=== PATIENT | female | born 1950 | race Caucasian/White ===

== ENCOUNTER → 2023-01-27 12:00 | Outpatient (CLI) | payer MEDICARE, SELFPAY ==
[2023-01-27 19:50] LABS: Basophils # 0.1 K/mm3 (0-0.2); Basophils % 0.6 % (0.1-2.0); Eosinophils # 0.1 K/mm3 (0.0-0.4); Eosinophils % 1.3 % (0.1-12.0); Hematocrit 42.8 % (37.0-47.0); Hemoglobin 15.1 g/dL (12.2-16.2); Lymphocytes % 30.1 % (10-50); Mean Corpuscular HGB Conc 35.4 g/dL (31.8-35.4); Mean Corpuscular Hemoglobin 32.2 pg (27.0-31.2); Mean Corpuscular Volume 91.2 fl (81-99); Mean Platelet Volume 8.4 fl (7.4-10.4); Monocytes # 0.4 K/mm3 (0.1-1.0); Monocytes % 4.5 % (1.7-9.3); Neutrophils # 6.3 K/mm3 (1.8-7.8); Neutrophils % 63.5 % (37.0-80.0); Platelet Count 322 K/mm3 (142-424); Red Cell Distribution Width 13.2 % (11.5-17.5); White Blood Count 9.9 K/mm3 (4.8-10.8)
[2023-01-27 20:10] LABS: Alanine Aminotransferase 19 U/L (12-78); Albumin Level 4.5 g/dl (3.5-5.0); Albumin/Globulin Ratio 1.8 (1.1-1.8); Alkaline Phosphatase 77 U/L (38-126); Aspartate Amino Transferase 28 U/L (14-36); Bilirubin,Total 0.6 mg/dl (0.2-1.3); Blood Urea Nitrogen 9 mg/dl (7-17); Calcium 9.2 mg/dl (8.4-10.2); Carbon Dioxide 31 mmol/L (22.0-30.0); Chloride 96 mmol/L (98-107); Chol/HDL Ratio 4.7 (1-3.5); Cholesterol 244 mg/dl (140-200); Estimated Glomerular Filt Rate 82 ml/min (>60); GFR (African American) 100 ML/MIN (>60); Globulin 2.5 g/dL (1.3-3.2); Glucose 73 mg/dl (74-100); HDL Cholesterol 52 mg/dl (40-60); Sodium 141 mmol/L (136-145); Triglycerides 163 mg/dl (30-150); VLDL Cholesterol 33 mg/dL (0-40)
[2023-01-27 20:21] LABS: Direct LDL Cholesterol 146.01 mg/dL (100-129)
[2023-01-27 20:41] LABS: Thyroid Stimulating Hormone 0.42 uIU/mL (0.465-4.68)
[2023-01-27 20:42] LABS: Anion Gap 17.1 mEq/L (5-15); Potassium 3.1 mmoL/L (3.5-5.1)
[2023-01-27 21:00] LABS: Vitamin B12 304 pg/mL (239-931)
== END ==
PROVIDERS: PCP Family Medicine; Visit Provider Family Medicine
DX: I10 Essential (primary) hypertension (principal)
CPT/HCPCS: 80053; 80061; 82607; 84443; 85025

== ENCOUNTER 2023-07-05 23:11 | Outpatient (CLI) | payer MEDICARE, SELFPAY | END 2023-07-05 23:59 | LOC: LAB.DROPOF 23:11 | PROVIDERS: PCP Nurse Practitioner; Visit Provider Nurse Practitioner | DX: R82.90 Unspecified abnormal findings in urine (principal); B96.29 Other Escherichia coli [E. coli] as the cause of diseases classified elsewhere | CPT/HCPCS: 87086 ==

== ENCOUNTER 2023-07-07 18:00 | Outpatient (CLI) | payer MEDICARE, SELFPAY ==
[2023-07-07 18:42] LABS: Basophils # 0.1 K/mm3 (0-0.2); Basophils % 0.9 % (0.1-2.0); Eosinophils # 0.2 K/mm3 (0.0-0.4); Eosinophils % 1.6 % (0.1-12.0); Hematocrit 44.8 % (37.0-47.0); Hemoglobin 14.1 g/dL (12.2-16.2); Lymphocytes # 2.7 K/mm3 (0.7-4.5); Lymphocytes % 24.9 % (10-50); Mean Corpuscular HGB Conc 31.4 g/dL (31.8-35.4); Mean Corpuscular Hemoglobin 31.3 pg (27.0-31.2); Mean Corpuscular Volume 99.9 fl (81-99); Mean Platelet Volume 8.5 fl (7.4-10.4); Monocytes # 0.6 K/mm3 (0.1-1.0); Monocytes % 5.1 % (1.7-9.3); Neutrophils # 7.2 K/mm3 (1.8-7.8); Neutrophils % 67.4 % (37.0-80.0); Platelet Count 352 K/mm3 (142-424); Red Blood Count 4.48 M/mm3 (4.20-5.40); Red Cell Distribution Width 13.5 % (11.5-17.5); White Blood Count 10.7 K/mm3 (4.8-10.8)
[2023-07-07 18:46] LABS: Alanine Aminotransferase 21 U/L (12-78); Albumin/Globulin Ratio 1.7 (1.1-1.8); Alkaline Phosphatase 80 U/L (38-126); Anion Gap 9.4 mEq/L (5-15); Aspartate Amino Transferase 29 U/L (14-36); Bilirubin,Total 0.4 mg/dl (0.2-1.3); Blood Urea Nitrogen 16 mg/dl (7-17); Calcium 9.3 mg/dl (8.4-10.2); Carbon Dioxide 32 mmol/L (22.0-30.0); Chloride 106 mmol/L (98-107); Estimated Glomerular Filt Rate 82 ml/min (>60); GFR (African American) 100 ML/MIN (>60); Globulin 2.3 g/dL (1.3-3.2); Glucose 80 mg/dl (74-100); Potassium 4.4 mmoL/L (3.5-5.1); Sodium 143 mmol/L (136-145); Total Protein,Serum 6.3 g/dl (6.3-8.2)
[2023-07-07 20:31] LABS: Vitamin B12 245 pg/mL (239-931)
== END 2023-07-07 23:59 | disposition home or self-care (01) ==
LOC: LAB.DROPOF 07-08 14:05
PROVIDERS: PCP Family Medicine; Visit Provider Family Medicine
DX: I10 Essential (primary) hypertension (principal); F41.9 Anxiety disorder, unspecified; R29.818 Other symptoms and signs involving the nervous system; F32.A Depression, unspecified; Z68.31 Body mass index [BMI] 31.0-31.9, adult
CPT/HCPCS: 80053; 82607; 84443; 85025

== ENCOUNTER 2025-02-02 12:15 | Outpatient (CLI) | payer MEDICARE, SELFPAY ==
[2025-02-02 19:40] LABS: Hematocrit 41.8 % (37.0-47.0); Hemoglobin 14.0 g/dL (12.2-16.2); Immature Granulocytes % 0.3 %; Mean Corpuscular HGB Conc 33.5 g/dL (31.8-35.4); Mean Corpuscular Hemoglobin 31.1 pg (27.0-31.2); Mean Corpuscular Volume 92.9 fl (81-99); Nucleated Red Blood Cells % 0 %; Platelet Count 272 K/mm3 (142-424); Red Blood Count 4.50 M/mm3 (4.20-5.40); Red Cell Distribution Width-SD 42.1 fL; White Blood Count 7.2 K/mm3 (4.8-10.8)
[2025-02-02 20:04] LABS: Alanine Aminotransferase 23 U/L (12-78); Albumin Level 4.3 g/dl (3.5-5.0); Albumin/Globulin Ratio 1.6 (1.1-1.8); Alkaline Phosphatase 74 U/L (38-126); Anion Gap 9.8 mEq/L (5-15); Aspartate Amino Transferase 25 U/L (14-36); Bilirubin,Total 0.8 mg/dl (0.2-1.3); Blood Urea Nitrogen 21 mg/dl (7-17); Calcium 9.5 mg/dl (8.4-10.2); Carbon Dioxide 32 mmol/L (22.0-30.0); Chloride 98 mmol/L (98-107); Cholesterol 221 mg/dl (140-200); Creatinine,Serum 1.00 mg/dl (0.52-1.04); Estimated Glomerular Filt Rate 54 ml/min (>60); GFR (African American) 66 ML/MIN (>60); Globulin 2.7 g/dL (1.3-3.2); Glucose 97 mg/dl (74-100); HDL Cholesterol 49 mg/dl (40-60); Potassium 3.8 mmoL/L (3.5-5.1); Sodium 136 mmol/L (136-145); Total Protein,Serum 7.0 g/dl (6.3-8.2); Triglycerides 199 mg/dl (30-150)
[2025-02-02 20:34] LABS: Thyroid Stimulating Hormone 0.55 uIU/mL (0.465-4.68)
[2025-02-02 23:10] LABS: Hepatitis C Ab Qual. W/ RFX NEGATIVE (Negative)
--- OUTSIDE RECORDS SUMMARY | 2025-02-05 12:18 | XMS_ITS | Data Portability ---
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 Plan of Treatment Reminders Order Date Submit Date Provider Last Modified By Organization Details Last Modified Time Details Appointments None recorded. Lab surgical pathology study 2024 025 [facility], [address] [place] [address], [id number], 09:36:15 surgical pathology study 2024 025 [facility], [address] [place] [address], [phone], 17:54:08 Referral None recorded. Procedures None recorded. Surgeries None recorded. Imaging None recorded. Medication Orders None recorded. Patient TargetsNo targets recorded. Patient InstructionsNo instructions recorded. Reason for Referral None Reported. Results Created Date Observation Date Name Description Value Unit Range Abnormal Flag Note LastModifiedBy Organization Detail LastModifiedTime 06/22/1906/21/2024 [facility] surgical SEE BELOW abnormal Bode topat holog y Repor t NAME: JACKIE PAZ SARI PATH: [id number] PROCE DURE DATE: 06/21 SIGNO UT DATE: 06/22 Copy to: Diagn osis: Dorsa l neck- BASAL CELL CARCI NOMA Comme nt: One perip heral emily n is invol kayla with tumor . AJCC: T1, Nx, Mx SOURC E OF SPECI MEN: SKIN, DORSA L NECK [facility] INFOR MATIO N: R/O: BCC. Gross Descr iptio n: The speci men consi sted of a ballard fragm ent which was bisec jannet and measu red 7 x 7 x 1 mm. All submi tted in one casse tte. Micro scopi c Descr iptio n: Nests and aggre keyes of immat ure basal oid epith elial cells with perip heral palis ading are prese nt in the dermi s. SURI PAVON MD Ruba d Out Date: 06/22 17:53 1 Not Available [facility] [address] [place] [address], [place], [phone], 06/22/2024 17:54:08 09/09/1909/08/2024 [facility] surgical SEE BELOW abnormal Bode topat holog y Repor t NAME: JACKIE PAZ SARI PATH: [id number] PROCE DURE DATE: 09/08 SIGNO UT DATE: 09/12 Copy to: Diagn osis: Dorsa l Neck - REPAR ATIVE REACT ION FOLLO WING PREVI OUS PROCE DURE Comme nt: Subcu taneo us fat is ident ified . SOURC E OF SPECI MEN: SKIN, DORSA L NECK [facility] INFOR MATIO N: BX PROVE N: BCC. CHECK FOR CLEAR EMILY NS. Gross Descr iptio n: Recei kayla times one ballard ellip tical -shap ed excis ion which measu red 28 x 12 x 5 mm. Speci men is inked with blue dye for emily ns and seria lly secti oned (x10) . All is submi tted in three casse ttes. Micro scopi c Descr iptio n: Focal granu latio n tissu e graves the site of the previ ous proce dure. There is no evide nce of resid ual neopl asm. SURI PAVON MD Ruba d Out Date: 09/12 09:35 1 Not [address] [facility] [address], [place], [address], 09/12/2024 09:36:15 Result Notes None recorded. 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 Procedures Surgical History Date Name Laterality Status Provider Name and Address Organization Details Recorded Time DAK - Biopsy, Tangential completed Lillian Crooks [facility] 06/21/2024 11:34:55 Imaging Results None recorded. Procedure Notes None recorded. Medical Equipment None Reported. Allergies No known drug allergies Medications Name Sig Start Date Stop Date Status Note LastModified by Organization Details LastModified Time amoxicillin 500 mg capsule TAKE ONE CAPSULE BY MOUTH TWICE DAILY FOR 10 DAYS active Not Available Not Available No t Available furosemide 40 mg tablet TAKE ONE TABLET BY MOUTH DAILY active Not Available Not Available Not Available atorvastatin 40 mg tablet TAKE ONE TABLET BY MOUTH EVERY DAY active Not Available Not Available No t Available nystatin 100,000 unit/mL oral suspension SWISH AND swallow 5ml BY MOUTH EVERY 6 HOURS active Not Available Not Available No t Available prednisone 10 mg tablet active Not Available Not Available Not Available azithromycin 250 mg tablet active Not Available Not Available Not Available alprazolam 1 mg tablet TAKE ONE TABLET BY MOUTH TWICE DAILY NEEDED FOR ANXIETY, USE sparingly when possible active Not Available Not Available No t Available fluconazole 150 mg tablet TAKE ONE TABLET BY MOUTH every other DAY FOR SIX DAYS active Not Available Not Available No t Available benzonatate 200 mg capsule TAKE THREE CAPSULES BY MOUTH DAILY FOR COUGH active Not Available Not Available No t Available metoprolol succinate ER 50 mg tablet,exten ded release 24 hr TAKE ONE TABLET BY MOUTH EVERY DAY active Not Available Not Available No t Available ondansetron HCl 4 mg tablet TAKE ONE TABLET BY MOUTH EVERY EIGHT HOURS NEEDED FOR NAUSEA AND VOMITING active Not Available Not Available No t Available prednisone 20 mg tablet TAKE ONE TABLET BY MOUTH EVERY DAY active Not Available Not Available No t Available metoprolol succinate ER 100 mg tablet,exten ded release 24 hr Take ONE tablet by MOUTH DAILY active Not Available Not Available Not Available permethrin 5 % topical cream active Not Available Not Available Not Available venlafaxine ER 150 mg capsule,exte nded release 24 hr TAKE ONE CAPSULE BY MOUTH DAILY active Not Available Not Available Not Available valsartan 80 mg tablet TAKE ONE TABLET BY MOUTH EVERY DAY active Not Available Not Available No t Available potassium chloride ER 10 mEq tablet,exten ded release TAKE ONE CAPSULE BY MOUTH EVERY DAY active Not Available Not Available No t Available clopidogrel 75 mg tablet TAKE ONE TABLET BY MOUTH EVERY DAY active Not Available Not Available No t Available ciprofloxaci n 500 mg tablet TAKE ONE TABLET BY MOUTH TWICE DAILY FOR 10 DAYS active Not Available Not Available No t Available sulfamethoxa zole 800 mg-trimethop rim 160 mg tablet TAKE ONE TABLET BY MOUTH TWICE DAILY active Not Available Not Available No t Available omeprazole 40 mg capsule,berny yed release TAKE ONE TABLET BY MOUTH DAILY active Not Available Not Available Not Available aspirin 81 mg tablet,delay ed release TAKE ONE TABLET BY MOUTH EVERY DAY active Not Available Not Available No t Available temazepam 7.5 mg capsule TAKE ONE CAPSULE BY MOUTH AT BEDTIME active Not Available Not Available No t Available alprazolam 0.5 mg tablet TAKE ONE TABLET BY MOUTH THREE TIMES DAILY NEEDED active Not Available Not Available No t Available alprazolam 0.25 mg tablet TAKE 1 TABLET BY MOUTH TWICE DAILY FOR 5 DAYS active Not Available Not Available No t Available amlodipine 10 mg tablet TAKE ONE TABLET BY MOUTH EVERY DAY active Not Available Not Available No t Available benzonatate 100 mg capsule active Not Available Not Available Not Available cephalexin 500 mg capsule active Not Available Not Available Not Available hyoscyamine sulfate 0.125 mg tablet TAKE ONE TABLET BY MOUTH FOUR TIMES DAILY NEEDED FOR DIARRHEA OR abdominal cramping active Not Available Not Available No t Available nystatin 100,000 unit/gram topical cream active Not Available Not Available Not Available nystatin-tri amcinolone 100,000 unit/g-0.1 % topical cream apply TO affected AREA TO THE SKIN 2 times a DAY IN THE MORNING AND IN THE EVENING FOR 2 WEEKS active Not Available Not Available No t Available pravastatin 20 mg tablet TAKE ONE TABLET BY MOUTH EVERY DAY active Not Available Not Available No t Available mirtazapine 15 mg tablet TAKE ONE TABLET BY MOUTH EVERY DAY active Not Available Not Available No t Available Cheratussin AC 10 mg-100 mg/5 mL oral liquid active Not Available Not Available Not Available epinephrine 0.3 mg/0.3 mL injection, auto-injecto r Inject contents of 1 syringe intramuscul rosa, repeat in 10-15 minutes if symptoms are not resolved. Call 911 after using. - DO not exceed TWO doses PER episode active Not Available Not Available Not Available cefuroxime axetil 500 mg tablet TAKE ONE TABLET BY MOUTH TWICE DAILY FOR 7 DAYS active Not Available Not Available No t Available methylpredni solone 4 mg tablets in a dose pack take BY MOUTH as directed ON package active Not Available Not Available No t Available hydrocodone 10 mg-chlorphen iramine 8 mg/5 mL oral susp extend.rel 12hr active Not Available Not Available Not Available losartan 50 mg-hydrochlo rothiazide 12.5 mg tablet TAKE ONE TABLET BY MOUTH EVERY DAY active Not Available Not Available No t Available [facility] 3 % shampoo APPLY TO wet HAIR AND lather WEEKLY. LEAVE in place FOR approximate ly THREE minutes AND THEN RINSE active Not Available Not Available N ot Available oxybutynin chloride 5 mg tablet active Not Available Not Available No t Available dorzolamide 2 % eye drops instill one drop into BOTH eyes TWICE DAILY active Not Available Not Available Not Available amoxicillin 500 mg-potassium clavulanate 125 mg tablet TAKE ONE TABLET BY MOUTH TWICE DAILY FOR 7 DAYS active Not Available Not Available No t Available azithromycin 500 mg tablet take 500mg by MOUTH FOR THREE DAYS active Not Available Not Available No t Available rosuvastatin 40 mg tablet TAKE ONE TABLET BY MOUTH EVERY DAY active Not Available Not Available No t Available Effexor XR active Not Available Not Av ailable Not Available brimonidine 0.2 %-timolol 0.5 % eye drops Instill ONE DROP IN EACH EYE TWICE DAILY active Not Available Not Available Not Available venlafaxine ER 225 mg tablet,exten ded release 24 hr TAKE ONE TABLET BY MOUTH DAILY active Not Available Not Available Not Available Paxlovid 300 mg (150 mg x 2)-100 mg tablets in a dose pack FOLLOW PACKAGE DIRECTIONS active Not Available Not Available N ot Available Vitals None Recorded Social History Question Answer Notes LastModified by Organizat ion Details LastModified Time Tobacco Smoking Status Current Every Day Smoker Weston Boyd [facility] 06/21/2024 11:23:54 What Is Your Level Of Caffeine Consumption? Occasional [email or web address] Information not available 06/21/2024 Sunscreen Use? Yes [email or web address] Informatio n not available 06/21/2024 Tanning Bed Use No [email or web address] Informati on not available 06/21/2024 What Was The Date Of Your Most Recent Tobacco Screening? 06/21/2024 [email or web address] Information not available 06/21/2024 Has Tobacco Cessation Counseling Been Provided? No [email or web address] Information not available 06/21/2024 Sex: Unknown Functional Status Question Answer Note LastModified by Organizat ion Details LastModified Time Do you use any illicit or recreational drugs? No [email or web address] Information not available 06/21/2024 Do you or have you ever used any other forms of tobacco or nicotine? No [email or web address] Information not available 06/21/2024 What is your level of alcohol consumption? None [email or web address] Information not available 06/21/2024 Mental Status None recorded. Family History Relationship Description Onset Age of this Age Resolved Age Notes LastModified by Organization Details LastModified Time Father No current problems or disability [email or web address] Not available 05/28 11:23:25 Mother No current problems or disability [email or web address] Not available 05/28 11:23:25 Medical History Condition Response Skin Cancer Y Autoimmune disease N Basal Cell Carcinoma Y Gynecological HistoryNo gynecological history recorded. Obstetrics History GPAL:G 0 P 0 0 0 0 Past Encounters Encounter ID Performer Location Encounter Start Date Encounter Closed Date Diagnosis/Indication Diagnosis SNOMED-CT Code Diagnosis ICD10 Code Diagnosis IMO Codes Diagnosis Note [id number] JEROME CROCKER PA-C [facility] [address] [place] [address] 06/21/2024 10:48:12 06/21/2024 12:44:05 History of malignant neoplasm of skin 975979275 Z85.828 - 2016- No evidence of recurrence today- Call with any worrisome lesions or if treated lesions return- Return at regular intervals for skin exam as recommende d Multiple b enign melanocytic nevi 953002643 D22.5 - Benign moles seen on exam today - SPF 30 or higher broad-spec trum sunscreen recommende d with re-applica tion every 2 hours - Discussed sun protection measures, including wide-brimm ed hat, sun-protec tive clothing, and avoidance of sun during peak hours of 10am-4pm - Avoid tanning beds as these can increase the chances of all 3 types of skin cancer - Instructed to monitor for changes and to call us for appointmen t with any changing or worrisome lesions Seborrheic keratosis 394 797940 L82.1 - Benign overgrowth s of skin - Hereditary Senile angioma 2511293 I 78.1 - Benign blood vessel growths - Hereditary Solar lentigo 85888048 L 81.4 - Benign brown spots - Sun-induce d Neoplasm o f uncertain behavior of skin 58202743 D48.5 1. dorsal neck - 7mm pink scaly papule r/o BCC Onychomycosis 546487992 B35.1 Discussed likely fungal etiology of the condition. Recommende d starting white vinegar/wa ter mix (1:1) daily for 10min per day.Often takes several months to clear. Can also recur once cleared. [id number] GUSTAVO LYLES MD [facility] [address] [place] [address] 09/08/2024 13:33:26 09/08/2024 15:16:19 Basal cell carcinoma of neck 993282020 C44.41 [id number] Patient presents for an excision. Location: dorsal neckDiagno sis: BCCReason for excision: lesion is a malignancy The benefits and risks of excision were discussed, including but not necessaril y limited to, the risks of scarring, bleeding, infection and pain. Any reasonable risk of neurovascu lar structure damage was reviewed as appropriat e. The site was identified , with aid of clinical photos when available and pertinent, and the patient had no reservatio ns with the agreed upon site being the correct site of the lesion in question. The patient provided an informed consent to proceed with the procedure. The area was cleansed with alcohol and then anesthetiz ed with 3-6 cc of 1% lidocaine with 1:100,000 epinephrin e. The lesion's initial size was 0.6 cmThe margins planned and taken around the lesion were 4 mm.The size of excision [initial size + (margin x 2)] was 1.4 cm. The area was prepped with chlorhexid ine solution. An excision was performed with a #15 blade in a fusiform fashion to the depth of the subcutaneo us tissue. The specimen was sent to pathology for examinatio n. Hemostasis was achieved with bovie electrocau khushboo. Repair: due to wound tension and risk of adverse healing and/or scarring, an intermedia te layered closure was necessary and performed, by closing the deeper subcutaneo us layer and dermis with buried sutures as below, and the epidermal skin layer with exposed cuticular sutures as below. Limited or no underminin g was performed to aid this closure. Suture material used--Buri ed inverted vertical mattress(e s): 4-0 VicrylEpid ermal cuticular suture(s): 5-0 Chromic gutThe length of the repair's final incision was 3.1 cm Vaseline, Telfa dressing, and a pressure dressing was applied to the wound. Wound care instructio ns were discussed and given in written form. Suture removal will not be necessary due to cuticular sutures being of a dissolving type Patient was advised to call with any issues or concerns. The patient tolerated the procedure well without any complicati ons and left the office in good condition. Health Concerns Section Related Observation LastModified by Organization Detai ls LastModified Time None Recorded Concern Status LastModified by Organization Details LastModified Time None Recorded Advance Directives Directive None Recorded Payers Insurance Date Sequence Insurance Name Policy Number Policy Escamilla Covered Member ID Escamilla Member ID Guarantor Name 12/17/2024 1 [employer] (MEDICARE REPLACEMENT/ ADVANTAGE - PPO) [id number] Franci Vo [id number] Franci A Austin Notes Date Note Type Note Provider Name and Address Organization Details Recorded Time 5 text/html ROS as noted in the HPI Patient requests a full body skin exam. Location: Full bodyPt re-estab from 09/2016History: Hx of BCC (L upper lip - 09/2016)Areas of concern: back JEROME CROCKER PA-C [address] [place], [address], [facility] 06/23/2024 19:31:30 5 text/html ROS as noted in the HPI Patient is here for an excision of aBCCon thedorsal neck - Pacemaker? No- Defibrillator? No- Artificial Heart Valves or Joints? No- Is patient currently on antibiotics? No- History of bleeding, infection, or complication with other surgeries? No- Has patient taken any steroids or other immunosuppressant medications in the past 2 weeks? No- Currently on blood thinners? Yes Which? Plavix GUSTAVO LYLES MD [facility] [place], [address], [facility] 09/08/2024 15:07:46 OBGyn Episode No OBEpisode recorded.
--- OUTSIDE RECORDS SUMMARY | 2025-02-05 12:18 | XMS_ITS | Data Portability ---
Author Organization [place] - [facility] Address [address] [place] [address] Care Team Providers Care Job Analysis Manager Name Role Phone DEMETRIUS JUANCHO Primary Care Provider Assessment No assessment recorded. Plan of Treatment Reminders Order Date Submit Date Provider Last Modified By Organization Details Last Modified Time Details Appointments None recorde d. Lab None recorde d. Referral None recorde d. Procedures None recorde d. Surgeries None recorde d. Imaging XR, ankle 025 06/09/19 25 [facility], [address] [place] [address] , [place], [address], 5 11:23:10 XR, ankle 025 04/27/19 25 [facility], [address] [place] [address] [place], [address], 5 13:24:03 XR, ankle 024 03/16/20 24 [email or web address], [address] [place] [address] [place], [address], 4 07:25:07 Medication Orders None recorde d. Patient TargetsNo targets recorded. Patient InstructionsNo instructions recorded. Reason for Referral None Reported. Results Created Date Observation Date Name Description Value Unit Range Abnormal Flag Note LastModifiedBy Organization Detail LastModifiedTime 03/16/20 24 XR, ankle No observ ation record ed. JIMBO Eisenberg [address] [place], [address], 03/16/2024 10:29:54 04/27/19 25 XR, ankle No observ ation record ed. JIMBO Eisenberg [address] [place], [address], 04/27/2024 10:27:56 06/08/19 25 XR, ankle No observ ation record ed. JIMBO Eisenberg [address] [place], [address], 06/08/2024 10:37:08 Result Notes None recorded. Procedures Surgical History Date Name Laterality Status Provider Name and Address Organization Details Recorded Time 0 Abdominal Surgery completed Emily Smith [facility] & [place] 03/16/2024 10:31:37 Imaging Results None recorded. Procedure Notes None recorded. Medical Equipment None Reported. Allergies No known drug allergies Medications Name Sig Start Date Stop Date Status Note LastModified by Organization Details LastModified Time furosemide 40 mg tablet TAKE ONE TABLET BY MOUTH EVERY DAY active Not Available Not Available No t Available atorvastatin 40 mg tablet TAKE ONE TABLET BY MOUTH EVERY DAY active Not Available Not Available No t Available azithromycin 250 mg tablet active Not [...] 24 hr TAKE ONE CAPSULE BY MOUTH EVERY DAY active Not Available Not Available No t Available valsartan 80 mg tablet TAKE ONE [...] 40 mg capsule,berny yed release TAKE ONE CAPSULE BY MOUTH EVERY DAY active Not Available Not Available No t Available aspirin 81 mg tablet,delay ed release [...] Not Available Not Available No t Available nystatin-tri amcinolone 100,000 unit/g-0.1 % topical [...] Not Available Not Available No t Available epinephrine 0.3 mg/0.3 mL injection, auto-injecto [...] 4 mg tablets in a dose pack active Not Available Not Available No t Available albuterol sulfate HFA 90 mcg/actuatio n aerosol inhaler active Not Available Not Available Not Available losartan 50 mg-hydrochlo rothiazide 12.5 mg tablet TAKE ONE TABLET BY MOUTH EVERY DAY active Not Available Not Available No t Available amoxicillin 500 mg-potassium clavulanate 125 mg tablet TAKE ONE TABLET BY MOUTH TWICE DAILY FOR 7 DAYS active Not Available Not Available No t Available rosuvastatin 40 mg tablet TAKE ONE TABLET BY MOUTH EVERY DAY active Not Available Not Available No t Available brimonidine 0.2 %-timolol 0.5 % eye drops Instill ONE DROP IN EACH EYE TWICE DAILY active Not Available Not Available Not Available Paxlovid 300 mg (150 mg x 2)-100 mg tablets in a dose pack FOLLOW PACKAGE DIRECTIONS active Not Available Not Available N ot Available Vitals None Recorded Social History None recorded. Functional Status None recorded. Mental Status None recorded. Family History Nothing Reported. Medical History Condition Response Hypertension Y GI Problems Y High Cholesterol Y Gynecological HistoryNo gynecological history recorded. Obstetrics History GPAL:G 0 P 0 0 0 0 Past Encounters Encounter ID Performer Location Encounter Start Date Encounter Closed Date Diagnosis/Indication Diagnosis SNOMED-CT Code Diagnosis ICD10 Code Diagnosis IMO Codes Diagnosis Note [id number] Nicola Story MD [place] [address] 9 03/16/2024 10:05:01 03/16/2024 10:56:00 Closed fracture of distal fibula 479923384 S82.832A Injury of left ankle [id number] S99.912A [id number] KAUSHIK ELENA NP [place] [address] 9 04/27/2024 10:10:41 04/27/2024 10:37:34 Closed fracture of distal fibula 328063742 S82.831D Injury of left ankle [id number] S99.912A [id number] [facility] [place] [id number] 9 06/08/2024 10:20:40 06/08/2024 10:59:53 Closed fracture of distal fibula 834787305 S82.831D Health Concerns Section Related Observation LastModified by Organization Anibal ls LastModified Time None Recorded Concern Status LastModified by Organization Details LastModified Time None Recorded Advance Directives Directive None Recorded Payers Insurance Date Sequence Insurance Name Policy Number Policy Escamilla Covered Member ID Escamilla Member ID Guarantor Name 07/04/2024 1 KIM (MEDICARE REPLACEMENT/ ADVANTAGE - PPO) Franci Vo [id number] Franci Doezell Notes Date Note Type Note Provider Name and Address Organization Details Recorded Time 03/16/2024 text/html 73 y/o female here today for left ankle injury on 03.14.24. Patient states she fell inside bending over to brass pickler pill she dropped, ankle turned outward. Pain and swelling about lateral ankle. Has been weight bearing but painful. E1AP 3V LEFT ANKLE IN OFFICE 03.16.24 Nicola Story MD [address] [place] [address] Drive,[address], [place], [address], [facility] & [place] 03/17/2024 08:41:17 04/27/2024 text/html ROS as noted in the HPI Pt presents today for Follow up closed fracture of distal fibula. DOI: 03.14.24. Pt states she is no longer having pain. Pt states she wears the boot all the time except when sleeping. She states she still has some swelling around ankle. Pt sometimes takes tylenol for pain. We will get new x-rays today in office.[id number] KAUSHIK ELENA NP [address] [facility],[address], [place], [address], [facility] & [place] 04/27/2024 14:37:53 06/08/2024 text/html ROS as noted in the HPI 73 year old female here today for 12 week post left ankle fracture. She states that minimal pain if she turns it the wrong way. She is wearing an ankle sleeve. KAUSHIK ELENA NP [address], [place], [address], [facility] & [place] 06/08/2024 11:28:58 OBGyn Episode No OBEpisode recorded.
--- OUTSIDE RECORDS SUMMARY | 2025-02-05 12:18 | XMS_ITS | Data Portability ---
Author Organization [facility] Address [address] [place] [address] Assessment No assessment recorded. Plan of Treatment Reminders Order Date Submit Date Provider Last Modified By Organization Details Last Modified Time Details Appointments None recorded. Lab pap, IG + reflex HR HPV 2016 017 CUDAHY [facility], [address], [facility], [place], [address], 7 10:36:54 Referral None recorded. Procedures None recorded. Surgeries None recorded. Imaging MAMMO, screening, bilateral 2016 017 JIMBO Peralta (Centralized Scheduling), [address] [place] [address] [place], [address], 7 05:37:42 Medication Orders fluconazole 150 mg tablet 2023 024 JIMBO Rainey, [address] [place] [address] [place], [place], [id number], 4 18:12:12 nystatin-tr iamcinolone 100,000 unit/g-0.1 % topical cream 2023 024 JIMBO Rainey, [address] [place] [address] [place], [place], [id number], 5 13:32:59 Premarin 0.625 mg/gram vaginal cream 2016 017 Not available 4 16:16:40 nystatin 100,000 unit/gram topical powder 2016 017 [email or web address] Not available 4 16:15:57 clotrimazol e-betametha sone 1 %-0.05 % topical cream 2016 017 Not available 16:14:15 Patient TargetsNo targets recorded. Patient Instructions Encounter Date Encounter Id Patient Instructions Last Modified By Organization Details Last Modified Time 04/27/2016 [id number] smoking cessatio n counseling, greater than 3 minutes up to 10 minutes* Not available 04/27/2016 13:18:27 1. She was advised regarding adequate calcium/vitamin D intake to include 4869-9846 mg calcium with 800-1000 IU vitamin D daily from all sources including dietary and supplement. 2. Encourage regular weight bearing exercise. 3. DEXA scan is current. 4. Schedule screening mammogram. 5. She declines colonoscopy referral. 6. Recommend dermatology skin cancer screening exam. She uses [facility]. Not available 04/27/2016 13:19:45 We will call abnormal test results in 7-10 days. Patient is advised that normal test results will be retrievable through [facility] Patient Portal and that they will be notified of the availability of normal results from [facility] by phone call, text or email. Not available 04/27/2016 13:19:54 01/04/2024 [id number] 1. Start fluconazole every other day x 3 doses. 2. Start topical antifungal and steroid cream bid x 2 weeks to involved areas. Not available 01/05/2024 06:44:00 Reason for Referral None Reported. Results Created Date Observation Date Name Description Value Unit Range Abnormal Flag Note LastModifiedBy Organization Detail LastModifiedTime 04/27/19 17 04/29/2016 pap, IG + refle x HR HPV diagnosis: COMMEN T NEGAT [place] FOR INTRA EPITH ELIAL ISHA Dunaway AND JEROME ASIF . Not Available [facility] ([facility]) [address] [facility], [place], [address], 04/29/2016 10:36:54 01/30/04/29/2016 pap, IG + refle x HR HPV specimen adequacy: SANGITA Cohen SATIS FACTO RY FOR EVALU ATION . ENDOC ERVIC AL AND/O R SQUAM OUS METAP LASTI C CELLS (ENDO CERVI LIBRA COMPO NENT) ARE PRESE NT. Not Available [facility] ([facility]) [address] [place], [address], 04/29/2016 10:36:54 04/27/19 17 04/29/2016 pap, IG + refle x HR HPV clinician provided ICD10: SANGITA Cohen Z12.4 Not Available [facility] ([facility]) [address] [place], [address], 04/29/2016 10:36:54 04/27/19 17 04/29/2016 pap, IG + refle x HR HPV performed by: SANGITA ORDAZ R, [facility]OR Y CYTOT LOUIE Cohen (ASCP ) Not Available [facility] ([facility]) [address] [facility], [place], [address], 04/29/2016 10:36:54 04/27/19 17 04/29/2016 pap, IG + refle x HR HPV . . Not Available [facility] ([facility]) [address] [place], [address], 04/29/2016 10:36:54 04/27/19 17 04/29/2016 pap, IG + refle x HR HPV note: SANGITA Cohen THE PAP SMEAR IS A SCREE JANETTE TEST DESIG KATHY TO AID IN THE DETEC TION OF THUAN LIGNA NT AND MALIG NANT CONDI TIONS OF THE UTERI NE CERVI X. IT IS NOT A DIAGN OSTIC PROCE DURE AND SHOUL D NOT BE USED THE SOLE MEANS OF DETEC TING CERVI LIBRA CANCE R. BOTH FALSE -POSI TIVE AND FALSE -NEGA TIVE REPOR TS DO OCCUR . Not Available [facility] ([facility]) [address] [place], [address], 04/29/2016 10:36:54 04/27/19 17 04/29/2016 pap, IG + refle x HR HPV test methodology: COMMEN T THIS LIQUI D BASED THINP REP(R ) PAP TEST WAS ISAURO KATHY WITH THE USE OF AN IMAGE GUIDE Augustin Mondragon. Not Available [facility] ([facility]) [address] [facility], [place], [address], 04/29/2016 10:36:54 04/27/19 17 04/29/2016 pap, IG + refle x HR HPV . COMMEN T THE HPV DNA REFLE X CRITE VIN WERE NOT MET WITH THIS SPECI MEN RESUL T THERE FORE, NO HPV TESTI NG WAS PERFO RMED. Not Available [facility] ([facility]) [address] [facility], [place], [address], 04/29/2016 10:36:54 Result Notes None recorded. Problems Name Problem SNOMED Code Status Onset Date Resolution Date Notes Provider Name and Address Organization Details Recorded Time Anxiety disorder 107804392 Active 2016 Raina pruett, [place] - [facility] 7 11:49:12 Depressive disorder 47334621 Active 2016 Raina Sotelo null, [place] - [facility] 7 11:49:17 Hyperlipidemia 79150997 Active 2016 Raina Sotelo null, [place] - [facility] 7 11:49:25 Hypertensive disorder 31118367 Active 2016 Raina Sotelo null, [place] - [facility] 7 11:49:32 Problem Notes None recorded. Procedures Surgical History Date Name Laterality Status Provider Name and Address Organization Details Recorded Time 04/27/19 17 Date of Last Pap Smear completed Kaysaba Lrmond, [employer] [address], [place], [address], [place] - [facility] 04/29/2016 11:09:06 09/06/19 15 Most Recent Bone Density completed Raina Sotelo [place] - [facility] 01/10/2016 10:23:57 Cholecystectomy, laparoscopic completed Raina Sotelo [place] - [facility] 01/10/2016 10:28:20 Imaging Results None recorded. Procedure Notes None recorded. Medical Equipment None Reported. Allergies No known drug allergies Medications Name Sig Start Date Stop Date Status Note LastModified by Organization Details LastModified Time amoxicill in 500 mg capsule TAKE ONE CAPSULE BY MOUTH TWICE DAILY FOR 10 DAYS 01/03 completed Not Available Not Available Not Available furosemid e 40 mg tablet TAKE ONE TABLET BY MOUTH EVERY DAY active Not Available Not Available No t Available atorvasta tin 40 mg tablet TAKE ONE TABLET BY MOUTH EVERY DAY active Not Available Not Available No t Available nystatin 100,000 unit/mL oral suspensio n SWISH AND swallow 5ml BY MOUTH EVERY 6 HOURS 01/03 completed Not Available Not Available Not Available prednison e 10 mg tablet 01/03 completed Not Available Not Available Not Available Protonix 40 mg tablet,de layed release take 1 tablet (40 mg) by oral route once daily 12/19 completed Protonix 40 mg oral tablet,d elayed release (/NORTH); Recorded Status: Recorded on: 02/07/20 08 11:14AM; Disconti nued Status: Disconti nued on: 12/20/19 11 2:31PM;U ser: [email or web address]; Indicati on: Gastroes ophageal Reflux - (.[id number]) Not Available Not Available Not Available Evista 60 mg tablet take 1 tablet (60 mg) by oral route once daily for 30 days 12/19 completed Evista 60 mg oral tablet;R ecorded Status: Recorded on: 06/18/19 11 4:43PM;D iscontin ued Status: Disconti nued on: 12/20/19 11 2:31PM;U ser: key ;Est. Completi on: 06/12/19 12;Print ed: 06/18/19 11 Not Available Not Available Not Available albuterol sulfate 2.5 mg/3 mL (0.083 %) solution for nebulizat ion 04/27 completed Not Available Not Available Not Available azithromy rey 250 mg tablet active Not Available Not Available No t Available alprazola m 1 mg tablet TAKE ONE TABLET BY MOUTH TWICE DAILY NEEDED FOR ANXIETY, USE sparingl y when possible active Not Available Not Available No t Available fluconazo le 150 mg tablet TAKE ONE TABLET BY MOUTH every other DAY FOR SIX DAYS active Not Available Not Available No t Available benzonata te 200 mg capsule TAKE THREE CAPSULES BY MOUTH DAILY FOR COUGH 01/03 completed Not Available Not Available Not Available metoprolo l succinate ER 50 mg tablet,ex tended release 24 hr TAKE ONE TABLET BY MOUTH EVERY DAY active Not Available Not Available No t Available Nystop 100,000 unit/gram topical powder APPLY TO THE AFFECTED AREA(S) BY TOPICAL ROUTE 2 TIMES PER DAY 01/03 completed Not Available Not Available Not Available prednison e 20 mg tablet TAKE ONE TABLET BY MOUTH EVERY DAY 01/03 completed Not Available Not Available Not Available metoprolo l succinate ER 100 mg tablet,ex tended release 24 hr 01/03 completed Not Available Not Available Not Available permethri n 5 % topical cream 01/03 completed Not Available Not Available Not Available venlafaxi ne ER 150 mg capsule,e xtended release 24 hr TAKE ONE CAPSULE BY MOUTH EVERY DAY active Not Available Not Available No t Available valsartan 80 mg tablet TAKE ONE TABLET BY MOUTH EVERY DAY active Not Available Not Available No t Available potassium chloride ER 10 mEq tablet,ex tended release TAKE ONE CAPSULE BY MOUTH EVERY DAY active Not Available Not Available No t Available clopidogr el 75 mg tablet TAKE ONE TABLET BY MOUTH EVERY DAY active Not Available Not Available No t Available ciproflox acin 500 mg tablet TAKE ONE TABLET BY MOUTH TWICE DAILY FOR 10 DAYS active Not Available Not Available No t Available sulfameth oxazole 800 mg-trimet hoprim 160 mg tablet TAKE ONE TABLET BY MOUTH TWICE DAILY active Not Available Not Available No t Available omeprazol e 40 mg capsule,d elayed release TAKE ONE CAPSULE BY MOUTH EVERY DAY active Not Available Not Available No t Available aspirin 81 mg tablet,de layed release TAKE ONE TABLET BY MOUTH EVERY DAY active Not Available Not Available No t Available triamcino lone acetonide 0.1 % topical cream apply a thin layer to the affected area(s) by topical route 2 times per day 01/03 completed triamcin olone acetonid e 0.1 % topical cream;Pr escribe Status: Prescrib ed on: 08/15/19 15 3:33PM;U ser: merissa ;Pharmac yVerifie d: 08/15/19 15 3:33PM Not Available Not Available Not Available Prevacid 30 mg capsule,d elayed release 1 po daily 02/06 completed Prevacid 30 mg oral capsule, delayed release( DR/EC);R ecorded Status: Recorded on: 12/31/19 08 10:02PM; Disconti nued Status: Disconti nued on: 02/07/20 08 11:14AM; User: key Not Available Not Available Not Available Premarin 0.625 mg/g vaginal cream Apply 0.5 gm intravag inally M-W-F at hs 12/19 completed Premarin Vaginal Cream 0.625 mg/g Vaginal; Recorded Status: Recorded on: 06/18/19 11 4:43PM;D iscontin ued Status: Disconti nued on: 12/20/19 11 2:34PM;U ser: [email or web address] ;Est. Completi on: 08/17/19 11;Indic ation: - (-5);Cathy nted: 06/18/19 11 Not Available Not Available Not Available alprazola m 0.5 mg tablet TAKE ONE TABLET BY MOUTH THREE TIMES DAILY NEEDED 01/03 completed Not Available Not Available Not Available alprazola m 0.25 mg tablet TAKE 1 TABLET BY MOUTH TWICE DAILY FOR 5 DAYS active Not Available Not Available No t Available Metrogel Vaginal 0.75 % (37.5 mg/5 gram) insert 1 applicat orful (37.5 mg) by vaginal route once daily at bedtime for 5 days 08/29 completed Metrogel Vaginal 0.75 % vaginal gel;Fede rded Status: Recorded on: 05/21/19 10 3:08PM;D iscontin ued Status: Disconti nued on: 08/30/19 10 1:33PM;U ser: [email or web address] ;Est. Completi on: 05/26/19 10;Indic ation: Bacteria l Vaginosi s - ([id number] );Prin jannet: 05/21/19 10 Not Available Not Available Not Available potassium chloride ER 20 mEq tablet,ex tended release(p art/cryst ) take 1 tablet (20 meq) by oral route once daily with food 07/26 completed potassiu m chloride 20 mEq oral tablet,E R particle s/darcy ls;Recor ded Status: Recorded on: 01/17/20 11 11:15AM; Disconti nued Status: Disconti nued on: 07/27/19 13 11:40AM; User: [email or web address] Not Available Not Available Not Available Fosamax 70 mg tablet take 1 tablet (70 mg) by oral route once weekly in the morning, at least 30 min before first food, beverage , or medicati on of day for 4 days 09/19 completed Fosamax 70 mg oral tablet;R ecorded Status: Recorded on: 09/20/19 15 10:56AM; User: [email or web address]; Est. Completi on: 09/24/19 15 Not Available Not Available Not Available amlodipin e 10 mg tablet TAKE ONE TABLET BY MOUTH EVERY DAY 01/03 completed Not Available Not Available Not Available benzonata te 100 mg capsule 01/03 completed Not Available Not Available Not Available cephalexi n 500 mg capsule 01/03 completed Not Available Not Available Not Available nystatin 100,000 unit/gram topical cream 01/03 completed Not Available Not Available Not Available clotrimaz ole-betam ethasone 1 %-0.05 % topical cream apply to the affected and surround ing areas of skin by topical route 2 times per day morning and evening 01/03 completed Not Available Not Available Not Available polymyxin B sulfate 10,000 unit-trim ethoprim 1 mg/mL eye drops 01/03 completed Not Available Not Available Not Available nystatin- triamcino lone 100,000 unit/g-0. 1 % topical cream apply TO affected AREA TO THE SKIN 2 times a DAY IN THE MORNING AND IN THE EVENING FOR 2 WEEKS 2024 active Not Available Not Available Not Avai lable pravastat in 20 mg tablet TAKE ONE TABLET BY MOUTH EVERY DAY 01/03 completed Not Available Not Available Not Available mirtazapi ne 15 mg tablet TAKE ONE TABLET BY MOUTH EVERY DAY active Not Available Not Available No t Available Cheratuss in AC 10 mg-100 mg/5 mL oral liquid 01/03 completed Not Available Not Available Not Available epinephri ne 0.3 mg/0.3 mL injection , auto-inje ctor Inject contents of 1 syringe intramus cularly, repeat in 10-15 minutes if symptoms are not resolved . Call 911 after using. - DO not exceed TWO doses PER episode active Not Available Not Available No t Available cefuroxim e axetil 500 mg tablet TAKE ONE TABLET BY MOUTH TWICE DAILY FOR 7 DAYS 01/03 completed Not Available Not Available Not Available levofloxa rey 500 mg tablet 04/27 completed Not Available Not Available Not Available zolpidem 10 mg tablet 01/03 completed Not Available Not Available Not Available methylpre dnisolone 4 mg tablets in a dose pack take BY MOUTH as directed ON package active Not Available Not Available No t Available hydrocodo ne 10 mg-chlorp heniramin e 8 mg/5 mL oral susp extend.re l 12hr 01/03 completed Not Available Not Available Not Available albuterol sulfate HFA 90 mcg/actua tion aerosol inhaler active Not Available Not Available Not Available losartan 50 mg-hydroc hlorothia zide 12.5 mg tablet TAKE ONE TABLET BY MOUTH EVERY DAY active Not Available Not Available No t Available oxybutyni n chloride 5 mg tablet 01/03 completed Not Available Not Available Not Available Gynazole- 1 2 % vaginal cream,ext ended release insert 1 applicat orful by vaginal route x1 at bedtime 05/21 completed Gynazole -1 2 % vaginal cream,ex tended release; Recorded Status: Recorded on: 02/07/20 08 12:06PM; Disconti nued Status: Disconti nued on: 05/21/19 10 1:55PM;U ser: key DaiEstTatyana Grant on: 02/08/20 08;Indic ation: Vulvovag inal Candidia sis - ();Prin jannet: 02/07/20 08 Not Available Not Available Not Available Temovate 0.05 % topical cream apply a thin layer to the affected area(s) by topical route 2 times per day for 14 days 01/10 completed Temovate 0.05 % topical cream;Re corded Status: Recorded on: 12/28/19 12 10:54AM; User: key DaiEstTatyana Grant on: 01/11/20 12;Print ed: 12/28/19 12 Not Available Not Available Not Available amoxicill in 500 mg-potass ium clavulana te 125 mg tablet TAKE ONE TABLET BY MOUTH TWICE DAILY FOR 7 DAYS 01/03 completed Not Available Not Available Not Available azithromy rey 500 mg tablet take 500mg by MOUTH FOR THREE DAYS 01/03 completed Not Available Not Available Not Available Premarin 0.625 mg/gram vaginal cream apply 0.5 grams by vaginal route twice weekly at for 30 days 01/03 completed Not Available Not Available Not Available rosuvasta tin 40 mg tablet TAKE ONE TABLET BY MOUTH EVERY DAY active Not Available Not Available No t Available Cymbalta 20 mg capsule,d elayed release take 1 capsule (20 mg) by oral route 2 times per day 12/27 completed Cymbalta 20 mg oral capsule, delayed release( DR/EC);R ecorded Status: Recorded on: 05/21/19 10 1:55PM;D iscontin ued Status: Disconti nued on: 12/28/19 12 10:04AM; User: [email or web address]; Indicati on: Major Depressi ve Disorder - ([id number]) Not Available Not Available Not Available Combigan 0.2 %-0.5 % eye drops Instill ONE DROP IN EACH EYE TWICE DAILY active Not Available Not Available No t Available venlafaxi ne ER 225 mg tablet,ex tended release 24 hr TAKE ONE TABLET BY MOUTH DAILY 01/03 completed Not Available Not Available Not Available Paxlovid 300 mg (150 mg x 2)-100 mg tablets in a dose pack FOLLOW PACKAGE DIRECTIO NS 01/03 completed Not Available Not Available Not Available Vitals Date Recorded Systolic And Diastolic Provider Name and Address Organization Details Last Updated DateTime 04/27/2016 126/76 mm[Hg] Kay Lrmond, [employer] [address], [place], [address], [place] - [facility] 04/27/2016 13:22:52 Date Recorded Body weight Body height Body mass index (BMI) Provider Name and Address Organization Details Last Updated DateTime 04/27/2016 77396.15 g 157.48 cm 30 kg/m2 Raina ROSENTHAL - [facility] 04/27/2016 11:47:36 Date Recorded Body weight Body mass index (BMI) Body height Pain severity - 0-10 verbal numeric rating [Score] - Reported Systolic And Diastolic Provider Name and Address Organization Details Last Updated DateTime 01/04/2024 06335.44 g 32.6 kg/m2 157.48 cm 0 124/78 mm[Hg] Raina Sotelo [place] - [facility] 16:24:25 Social History Question Answer Notes LastModified by Organizat ion Details LastModified Time Tobacco Smoking Status Current Some Day Smoker Raina pruett, [place] - [facility] 04/27/2016 11:50:24 Do You Have An Advance Directive? No [email or web address] Information not available 01/10/2016 Are You Blind Or Do You Have Difficulty Seeing? No [email or web address] Information not available 01/04/2024 Is Blood Transfusion Acceptable In An Emergency? Yes [email or web address] Information not available 01/10/2016 What Is Your Level Of Caffeine Consumption? Occasional [email or web address] Information not available 01/10/2016 How Much Tobacco Do You Chew? None [email or web address] Information not available 01/10/2016 In The 14 Days Before Symptom Onset, Have You Had Close Contact With A Laboratory-confir med COVID-19 While That Case Was Ill? No Information not available 01/04/2024 In The 14 Days Before Symptom Onset, Have You Had Close Contact With A Person Who Is Under Investigation For COVID-19 While That Person Was Ill? No Information not available 01/04/2024 Have You Been To An Area Known To Be High Risk For COVID-19? No [email or web address] Information not available 01/04/2024 Are You Deaf Or Do You Have Serious Difficulty Hearing? No Information not available 01/04/2024 What Type Of Diet Are You Following? REGULAR [email or web address] Information not available 01/10/2016 Which Illicit Or Recreational Drugs Have You Used? None [email or web address] Information not available 04/27/2016 Have You Processed Blood Or Body Fluids From An Ebola Virus Disease Patient Without Appropriate PPE? No Information not available 01/04/2024 Do You Reside In Or Have You Traveled To An Area Where Ebola Virus Transmission Is Active? No [email or web address] Information not available 01/04/2024 Education 12 [email or web address] Information no t available 01/10/2016 Have There Been Any Changes To Your Family Or Social Situation? No [email or web address] Information no t available 01/04/2024 What Is The Fluoride Status Of Your Home? Fluoridated [email or web address] Information not available 01/04/2024 Have You Recently Or Are You Planning To Travel To An Area With Zika Virus? No [email or web address] Information not available 01/04/2024 Live Alone Or With Others? Alone [email or web address] Information not available 01/10/2016 Do You Have A Medical Power Of Podiatric Foot And Ankle Specialist? No [email or web address] Information not available 01/04/2024 What Was The Date Of Your Most Recent Tobacco Screening? 01/04/2024 [email or web address] Information not available 01/04/2024 How Many Children Do You Have? 2 [email or web address] Information not available 01/10/2016 Performs Monthly Self-breast Exam? Yes Information no t available 01/10/2016 Do You Use Protection During Sex? Always [email or web address] Information not available 01/10/2016 What Is Your Relationship Status? [email or web address] Information not available 01/10/2016 Seat Belts Used Routinely Yes [email or web address] Information not available 01/10/2016 Are You Sexually Active? No Information not available 01/10/2016 Do You Have Smoke And Carbon Monoxide Detectors In Your Home? Yes [email or web address] Information not available 01/04/2024 Are You Passively Exposed To Smoke? No [email or web address] Information no t available 01/04/2024 How Much Tobacco Do You Smoke? 1 PPW [email or web address] Information not available 04/27/2016 General Stress Level Medium [email or web address] Information not available 01/10/2016 Do You Use Sunscreen Routinely? Yes [email or web address] Information not available 01/10/2016 Has Tobacco Cessation Counseling Been Provided? Yes [email or web address] Information not available 01/04/2024 On What Date Was Tobacco Cessation Counseling Provided? 01/04/2024 Information not available 01/04/2024 How Many Years Have You Smoked Tobacco? 15 [email or web address] Information not available 04/27/2016 Do You Have Difficulty Walking Or Climbing Stairs? No [email or web address] Information not available 01/04/2024 What Contraceptive Method Was Reported At Start Of This Visit? None [email or web address] Information not available 01/04/2024 What Contraceptive Method Was Reported At End Of This Visit? None [email or web address] Information not available 01/04/2024 Do You Want To Talk About Contraception Or Prevention During Your Visit Today? No - I Do Not Want To Talk About Contraception Today Because I Am Here For Something Else [email or web address] Information not available 01/04/2024 Do You Have Any Future Plans To Get ? No, I Don't Want To Become [email or web address] Information not available 01/04/2024 What Is Your Reason For Having No Contraceptive Method At Start Of This Visit? Abstinence [email or web address] Information not available 01/04/2024 What Is Your Reason For Having No Contraceptive Method At End Of This Visit? Abstinence [email or web address] Information not available 01/04/2024 Sex: Female Functional Status Question Answer Note LastModified by Organizat ion Details LastModified Time Do you use any illicit or recreational drugs? No [email or web address] Information not available 01/04/2024 Do you or have you ever used any other forms of tobacco or nicotine? No [email or web address] Information not available 01/04/2024 What is your level of alcohol consumption? Occasional Information not available 01/10/2016 Are you currently employed? No [email or web address] Information not available 01/10/2016 Do you have transportation difficulties? No Information not available 01/04/2024 What is your status? Not Information no t available 01/04/2024 Are you able to walk independently without assistance or assistive devices? [email or web address] Information not available 01/04/2024 Do you have difficulty doing errands alone? No Information not available 01/04/2024 Are you able to care for yourself independently? 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 No [email or web address] Information not available 01/04/2024 What is your exercise level? Occasional [email or web address] Information not available 01/10/2016 Mental Status Question Answer Note LastModified by Organizat ion Details LastModified Time Do you feel stressed (tense, restless, nervous, or anxious, or unable to sleep at night)? [id number] [email or web address] Information not available 01/04/2024 Do you have difficulty concentrating, remembering or making decisions? No [email or web address] Information no t available 01/04/2024 Family History Relationship Description Onset Age of this Age Resolved Age Notes LastModified by Organization Details LastModified Time Brother Hypothhoracio stephenson [email or web address] Not available 2015 10:26:11 Mother Myocardial infarction [email or web address] Not available 01/09 10:26:27 Father Myocardial infarction [email or web address] Not available 01/09 10:26:27 Medical History Condition Response Pancreatitis N Other N Atrial Fibrillation N congenital heart disease N Blood Diseases N Hyperthyroidism N Rheumatoid arthritis N Blood Transfusion N Erectile Dysfunction N amputation N Skin Lesions N Depression N Pneumonia N Incontinence N Murmur N Edema N Alzheimer's Disease N Migraine Headaches N Tobacco Abuse N Anxiety Disorder N Hemorrhoids N Obesity N Vision or Eye Problems N Arthritis N Restless Leg Syndrome N Polyps N Infertility N Carpal Tunnel N Acid Reflux (GERD) N Cancer N Varicosities N Stroke N Tendonitis N Crohn's Disease N Hypercholesterolemia N Skin Cancer N Headaches N Fibromyalgia N Irritable Bowel Syndrome N Anal Fissure N Kidney Disease N Heart Problems N Hospitalizations N Gallstones N Kidney or Bladder Problems N Goiter N Acne N Eating Disorder N Hypertriglyceridemia N Constipation N Embolism N Vitamin B12 Deficiency N AIDS/HIV N Myocardial Infarction N Asthma N Mitral Valve Disorders N Vertigo N Hepatitis N Thyroid Cancer N Neuropathy N History of DVT N Herniated Disc N Chicken Pox N Thrombophilias N Breast Cancer N Hernia N Plantar Fasciitis N Hypothyroidism N Lung Disease N Defects or Inherited Disease N Breast Problem N Ovarian Cyst N Anesthesia Complications N Testosterone Deficiency N Interstitial Cystitis N Congenital Anomalies N Hypoglycemia N Blood clot N Vitamin D Deficiency N Cellulitis N Endometriosis N Bladder or Kidney Problems N Fracture N Panic Disorder N Concussion N Spina Bifida N Osteoarthritis N Parkinson's Disease N Esophagitis N STI N Angina N Thyroid Problems N GI Problems N ADD/ADHD N Anemia N Abnormal PAP N Lumbago N Mental Illness N Psychiatric Illness N Diabetes N Ovarian Cancer N Degenerative Disc Disease N Seizures/Epilepsy N Hyperlipidemia N Syncope N Insomnia N Eczema N Abuse/Domestic Violence N Attention Deficient Disorder N Dementia N Ulcerative colitis N Cerebrovascular Disease N Depression N Guillain-[place] N Sleep Apnea N Bronchitis N Heart Disease N Hypertension N Pre-Eclampsia N Osteoporosis N Gynecological History Statement/Question Response Abnormal Pap N Date of Last Mammogram On BCP's at Conception? N Post Menopausal Bleeding N STIs/STDs N HPV Vaccine N Current Control Method None Age at First Child 22 Last Annual Exam/Provider 04-27-2016/MAY Last Lipids 2015 If Post Menopausal, Age at Menopause 50 Date of Last Colonoscopy Most Recent Bone Density 09/05/2014 Sexually Active? N Menses Monthly N Last [facility] Ovarian U/S Screening never Date of Last Pap Smear 04/27/2016 Sexual Problems? N LMP Unknown Desired Control Method None Hormone Replacement Therapy Y Obstetrics History GPAL:G 2 P 2 0 0 2 Type Value Full Term 2 Living 2 Total 2 Past Encounters Encounter ID Performer Location Encounter Start Date Encounter Closed Date Diagnosis/Indication Diagnosis SNOMED-CT Code Diagnosis ICD10 Code Diagnosis IMO Codes Diagnosis Note [id number] [facility] [address] [place] [address] 01/14/2007 00:00:00 [id number] [facility] [address] [place] [address] 02/07/2008 00:00:00 [id number] [facility] [address] [place] [address] 05/21/2009 00:00:00 [id number] [facility] [address] [place] [address] 08/29/2009 00:00:00 [id number] [facility] [address] [place] [address] 06/17/2010 00:00:00 [id number] [facility] [address] [place] [address] 12/19/2010 00:00:00 [id number] [facility] [address] [place] [address] 01/16/2011 00:00:00 [id number] [facility] [address] [place] [address] 12/28/2011 00:00:00 [id number] [facility] [address] [place] [address] 07/26/2012 00:00:00 [id number] [facility] [address] [place] [address] 07/28/2012 00:00:00 [id number] [facility] [address] [place] [address] 08/02/2012 00:00:00 [id number] [facility] [address] [place] [address] 08/14/2014 00:00:00 [id number] KRISTINA Medrano [employer] [address] [facility] [place] [address] 04/27/2016 11:41:48 04/27/2016 13:05:37 Routine gynecologic examination done 1986988053 9101 Z01.419 Diet education 47533595 Z71.3 2135-4477 calorie diet recommende d with emphasis on low saturated fat, low carbohydra te, and adequate protein intake. She declines dietary consult. Counseling 372781317 Z71 .9 Exercise counsellin [place] Patient encouraged to exercise 30 minutes 5 days a week. Vaccine de clined by patient [id number] 02 Z28.21 Tinea corporis 90427486 B35.4 Atrophic vaginitis 41627 000 N95.2 Screening for malignant neoplasm of cervix 585552119 Z12.4 Screening for malignant neoplasm of breast 735515492 Z12.31 Screening for malignant neoplasm of colon 538080674 Z12.11 Declined screening Obese 413645477 E66.9 Body mass index 30+ - obesity 110159706 Z68.30 Cigarette smoker 2377848 7 F17.210 Tobacco use discourage d. Techniques for quitting smoking discussed including pharmaceut icals (Nicotine patches, gum, Zyban, and Chantix) and behavioral therapy (Deepak Rai). Immediate and continuous churn buttermaker cardiovasc ular and respirator y benefits of smoking cessation discussed. Lung cancer risk reduction also discussed. Hypertensive disorder 38 274992 I10 She is on amlodipine and metoprolol daily. Depressive disorder 3548 9007 F32.9 She is on Effexor 150 mg daily and Xanax PRN [id number] KRISTINA Medrano [employer] [address] [facility] [place] [address] 01/04/2024 15:46:57 01/04/2024 17:04:53 Tinea corporis 53804042 B35.4 Seborrheic keratosis 394 998239 L82.1 Health Concerns Section Related Observation LastModified by Organization Detai ls LastModified Time None Recorded Concern Status LastModified by Organization Details LastModified Time None Recorded Advance Directives Directive N: Payers Insurance Date Sequence Insurance Name Policy Number Policy Escamilla Covered Member ID Escamilla Member ID Guarantor Name 04/17/2024 1 [employer] (PPO) Franci Perri Vo [id number] Franci Vo 04/17/2024 [employer] (MEDICARE REPLACEMENT/ ADVANTAGE - PPO) Franci Vo [id number] Franci Vo Notes Date Note Type Note Provider Name and Address Organization Details Recorded Time 04/27/2016 text/html Annual - MOBRepo rted by PatientHistoryFor history, patient reportslast annual exam: 2014,no gynecologic complaints, andno change in interval history.ContraceptionF or current contraception, patient reportsbirth control not practicedandpostmenopa usal.Preventative measuresFor preventive measures, patient reportsneeds to schedule mammogramandneeds to schedule colonoscopybut reportsencourage self breast examination,encourage regular exercise,encourage no tobacco use, andfollowed with yearly pap smears. The patient is a 65 year old reproductive age White female who presents as a/an established patient for annual gynecologic wellness exam. She denies gynecologic concerns. See above notations for significant gynecologic history of present illness as reported per patient during visit intake. Kay Orellana, KRISTINA [address], [place], [address], [place] - [facility] 04/27/2016 13:26:03 01/04/2024 text/html Vaginal/Vulvar ProblemReported by PatientHPIFor associated symptoms, patient reportsvaginal itching,vaginal irritation, andvulvar itching/irritationbut reportsno vaginal pain,no vulvar swelling/erythema,no vulvar pain,no vulvar lesions,no pelvic pain,no dyspareunia,no dyruria,no fever, andno abdominal pain. For location, patient reportsvagina. For onset/timing, patient reportsstarted: (6 months ago). For duration, patient reportspresent for >1 monthandintermittent. For quality, patient reportstender,swelling , andirritation. For severity, patient reportsmild. For context, patient reportsnot sexually active. For alleviating factors, patient reportsnone. For aggravating factors, patient reportsnone. Radha is here with c/o itchy, tender, red rash under both breasts and in both groin folds that have not improved with OTC creams. Kay Lrmond, COSTUME DESIGNER [address], [place], [address], [place] - [facility] 01/05/2024 06:45:02 OBGyn Episode Ob Episode Information Episode Created Date Number of Fetuses Patient Bloodtype Patient rh Status Prepregnancy Weight lbs Domestic Partner Domestic Partner Phone Father Name Senior Field Engineer Status 01/10/20 16 2 CLOSED Fetus Data First Name Last Name Admitted to NICU Weight (g) Sex Living Outcome Pediatric Complications Fetus ID Race Codes Race Delivery Type M Full Term 457 Vaginal F Full Term 458 Vaginal Sharad Calculation Initial Sharad Date Initial Exam Date Initial Exam Provider Initial Ultrasound Date Last Menstrual Period Date Ultra Sound Weeks Gestation 0 Eighteen To Twenty Week Sharad Update Ultra Sound Date Fundal Height At Umbil Quickening Date Ultra Sound Latest Weeks Gestation Final Sharad Confirmed By Final Sharad Confirmed Date Final Sharad Date Ultra Sound Latest Days Gestation 0 0 Menstrual History Last Menstrual Date Menses Monthly On Bcp Conception Prior Menses Frequency Hcg Plus Date Menarche Onset Age Delivery Information Delivery Date Delivery Type Labor Anesthesia Weeks Gestation Incision Type Labor Labor Length Hrs Delivered By Post Complications Tubal Sterilization Discharge Date Comments 6 false Discharge Information Feeding Method Contraceptive Method Maternal HG B and HCT Levels
== END 2025-02-02 23:59 ==
LOC: LAB.DROPOF 02-05 12:15
PROVIDERS: PCP Family Medicine; Visit Provider Family Medicine
DX: Z11.59 Encounter for screening for other viral diseases (principal); I10 Essential (primary) hypertension; R60.0 Localized edema
CPT/HCPCS: 80053; 80061; 84443; 85025; 86803; 87389